=== PATIENT | male | born 1945 | race Caucasian/White ===

== ENCOUNTER 2016-09-06 07:30 | Observation (INO) | payer MEDICARE ==
[~2016-09-06] VITALS: Ht 180.3 cm; Wt 94.5 kg
--- NOTE | ~2016-09-06 | HP ---
PATIENT'S NAME: ELIGIO [facility] AGE: 70 Y [address] [place] [facility] [place] [address] LOCATION: [facility] [place] ADMIT DATE: 09/06/2016 History & Physical DISCHARGE DATE: FAMILY PHYSICIAN: PHYSICIAN, UNKNOWN ATTENDING PHYSICIAN: NAILA ABRAHAM DATE OF SERVICE: CHIEF COMPLAINT: Ostomy site prolapse. HISTORY OF PRESENT ILLNESS: The patient is a 70-year-old male who was seen at an outside hospital and found to be in acute urinary retention. He was transferred to the [place] for urological care and was noted to have a prolapsed at his ostomy site. The patient states the prolapse occurred about 3 weeks ago. He denies any pain at the ostomy site. He reports that he is still producing same quantity and frequency of stools. Denies any fevers. PAST MEDICAL HISTORY: 1. 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 2. Rectal adenocarcinoma, status post ostomy placement for bowel diversion. 3. Left renal cell carcinoma. 4. History of left-sided testicular carcinoma. 5. Atrial fibrillation. 6. Hypertension. 7. Cardiomegaly. PAST SURGICAL HISTORY: 1. Left orchiectomy. 2. Colostomy in May 2016. 3. Left renal biopsy. FAMILY HISTORY: Coronary artery disease. SOCIAL HISTORY: , retired. Social alcohol, history of smoking two packs per day x10 years. ALLERGIES: NO KNOWN DRUG ALLERGIES. MEDICATIONS: See hospital med rec. PATIENT'S NAME: ELIGIO, [facility] AGE: 70 Y [address] ROOM: [place] [address] LOCATION: [facility] [place] ADMIT DATE: 09/06/2016 History & Physical DISCHARGE DATE: FAMILY PHYSICIAN: PHYSICIAN, UNKNOWN ATTENDING PHYSICIAN: NAILA ABRAHAM REVIEW OF SYSTEMS: GENERAL: No fever or change in weight. HEENT: No acute vision changes. No recent sore throats or nasal congestion. PULMONARY: No chronic cough. CARDIAC: Atrial fib. ABDOMEN: Ostomy placement in May 2016 secondary to rectal carcinoma. Negative for nausea, vomiting, change in stool. GENITOURINARY: Positive for acute urinary retention. Positive for history of left testicular cancer and left renal cell carcinoma. MUSCULOSKELETAL: Negative for loss of range of motion. PHYSICAL EXAMINATION: VITAL SIGNS: BP 169/94, pulse 95, respirations 16, temperature 98.0, O2 saturation 95% on room air. CONSTITUTIONAL: No acute distress. Awake and oriented. HEENT: Mucous membranes moist. NECK: Supple. Full range of motion. CARDIAC: Good peripheral perfusion. RESPIRATORY: No audible wheezing. Respirations are nonlabored. No increased work of breathing. ABDOMEN: Left-sided ostomy site with protrusion of intestinal mucosa approximately 4 cm with mucosal ischemia and flossing apparent, along with fecal matter. GENITOURINARY: Catheter in place. IMPRESSION: 1. Ostomy prolapse. 2. Urinary retention. PLAN: A 70-year-old male with ostomy prolapse for approximately 3 weeks. Ostomy prolapse was reduced at bedside by Dr. Pierce Leo. The patient had moderate pain during procedure, but tolerated it well and recovered afterwards. Plan is to allow a few days for edema, swelling to subside. During that time, we hope to obtain surgical records from his ostomy placement to determine best surgical approach. This ostomy site will likely need to be surgically assessed and prolapse fixed, so that it does not occur again. The patient is wanting to transfer his surgical care to [place] at this time; however, we need surgical records to proceed. If prolapse reoccurs and it is not reducible, we will move surgical intervention to a more urgent status. At this time, no urgency and we can allow for the edema to subside. PATIENT'S NAME: ALFONSO [facility] AGE: 70 Y [address] ROOM: [place] [address] LOCATION: [facility] [place] ADMIT DATE: 09/06/2016 History & Physical DISCHARGE DATE: FAMILY PHYSICIAN: PHYSICIAN, UNKNOWN ATTENDING PHYSICIAN: NAILA ABRAHAM KENDALL SMITH MD RESIDENT FOR MD TIFFANY ANN/modl /[id number] D: [id number] HISTORY & PHYSICAL
--- NOTE | ~2016-09-06 | CON ---
PATIENT'S NAME: ALFONSO OLMOS [facility] AGE: 70 Y [address] ROOM: [id number] [place] [address] LOCATION: [facility] [place] ADMIT DATE: 09/06/2016 Consultation DISCHARGE DATE: FAMILY PHYSICIAN: PHYSICIAN, UNKNOWN ATTENDING PHYSICIAN: NAILA AMIN REFERRING PHYSICIAN: KWAME JIMENEZ MD Consult to Dr. Amin. REASON FOR CONSULTATION: Alfonso Olmos is a 70-year-old man with partially neglected, residual- recurrent, locally progressive adenocarcinoma of the rectum. HISTORY OF PRESENT ILLNESS: The history of present illness is obtained from Mr. Olmos whose history is of dubious veracity; from visiting with his physician's broker assistant, Marisa Ryder PA-C; from review of his [facility] record; his old [facility] and current [facility] record; and from review of the records obtained from the [facility] in [place], [place]. Mr. Olmos was doing reasonably well until 09/05/2016. He lived alone, [place], [place] the country. The patient was retired. The patient engaged in no formal or informal exercise or rehabilitation program. He denied any practical limits. He did all the housekeeping at his house. 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 His appetite has been good and he has had no change in his weight. He noted occasional "gas pains." They are relieved by Gas-X and emptying his ostomy. He had an indwelling Malave catheter, which had been present since May 2016. He tolerated the indwelling catheter well. The Malave catheter stopped draining on 09/05/2016. The patient was triaged by Dr. Amira Solomon to [facility] after he was refused admission at [facility] and declined a transfer to the [facility]. The patient was admitted to Dr. Amin's Hospitalist Service. Dr. Amin consulted Dr. Jimenez. Dr. Jimenez recommended the nursing staff place a Malave catheter and the nursing staff placed a 20-Amharic Malave catheter successfully. Dr. Jimenez plans to see the patient in follow up in early September 2016, at which time a cystoscopy will be considered. Dr. Jimenez planned to obtain the old records from the [facility] for review. The patient expressed a desire to receive further Oncology followup in [place] so we are consulted. The patient has a history of adenocarcinoma of the rectum. The patient PATIENT'S NAME: ALFONSO OLMOS [facility] AGE: 70 Y [address] ROOM: [id number] [place] [id number] LOCATION: [facility] [place] ADMIT DATE: 09/06/2016 Consultation DISCHARGE DATE: FAMILY PHYSICIAN: PHYSICIAN, UNKNOWN ATTENDING PHYSICIAN: NAILA AMIN A developed constipation and near obstipation in early 2015. A CAT scan of the abdomen and pelvis revealed a possible partial sigmoid volvulus with distended loops of sigmoid colon in the left upper quadrant of the abdomen in association with a rectal mass. The patient was admitted to Dr. Isabelle Menendez's Surgical Service at the [facility] on 04/22/2015. Dr. Menendez consulted Dr. Vinnie Rueda who performed a colonoscopy on 04/23/2015. Dr. Rueda advanced the colonoscope to 90 cm and performed hot biopsies of the rectal lesion. The bowel prep was poor. A CAT scan at the [facility] revealed a 2 cm mass in the lower pole of the left kidney suspicious for renal cell carcinoma. There was mild fatty infiltration of the liver and atherosclerotic changes in the blood vessels. There was severe osteoarthritis in the low back. There was a 4.2 cm cyst in the upper pole of the left kidney and moderate diffuse enhancement of a 2 cm nodule involving the lower pole of the left kidney. There was a 1 cm cyst just inferior to the uncinate process of the pancreas. The radiologist made the point the renal mass was amenable to CT-guided biopsy and radiofrequency ablations. A CEA was 2.83 ng/mL. The initial biopsy revealed markedly atypical villous colonic mucosa with ulceration highly suspicious for adenocarcinoma that was nondiagnostic. On 05/08/2015, Dr. Menendez biopsied the mass and once again the result was nondiagnostic for cancer. The biopsy revealed a tubulovillous adenoma with focal high-grade dysplasia. On 05/22/2015, Dr. Menendez performed a surgical biopsy, which was diagnostic for an invasive moderately differentiated adenocarcinoma. On the same day, Dr. Eris Garay performed a core needle biopsy of the left kidney mass, which revealed a Pedro grade 2 clear cell carcinoma of the kidney. The procedure note is unavailable, but perhaps the patient underwent radiofrequency ablation, which had been contemplated. On 05/02/2015, the patient saw Dr. Ilene Martin in consultation who did coordinate the follow up colonoscopy with polypectomy on 05/08/2015, which was nondiagnostic. Dr. Martin also setup the CT-guided left renal mass biopsy. On 05/10/2015, a PET/CT scan revealed a large hypermetabolic rectal mass consistent with malignancy with local invasion into the prostate. The radiologist could not exclude extension into the anus. There was no evidence of metastatic disease. The lower pole left kidney mass was not hypermetabolic, but was highly suspicious for a small renal cell carcinoma. Dr. Odalys Uriostegui saw the patient in Radiation Oncology consultation on 05/06/2015 and recommended conventional radiation therapy in conjunction with systemic chemotherapy. PATIENT'S NAME: ALFONSO OLMOS [facility] AGE: 70 Y [address] ROOM: [place] [address] LOCATION: [facility] [place] ADMIT DATE: 09/06/2016 Consultation DISCHARGE DATE: FAMILY PHYSICIAN: PHYSICIAN, UNKNOWN ATTENDING PHYSICIAN: NAILA AMIN Capecitabine was prescribed to the patient, but after exchanging information with some buddies, he decided not to take the systemic therapy, but did agree to take the radiation therapy. From 07/09/2015 through 08/16/2015 twenty-eight 180 cGy fractions for a total of 5040 cGy were administered to the rectal mass over 38 elapsed treatment days The patient saw Dr. Avtar Valadez at the [facility]. We do not have his note, but the note is referred to by Dr. Contreras. Dr. Contreras made the point that Dr. Valadez recommended a resection of the rectal mass with a pelvic exenteration with curative intent. The patient declined this recommendation. The patient reports no structured surveillance was recommended and apparently declined any recommendation for further systemic therapy when these recommendations were made at the [facility] in [place], [place]. The patient did well for a short-period of time, but eventually became miserable with urinary frequency, fecal and urinary incontinence. On 06/08/2016, the patient was admitted to the [facility]. The patient had 4 to 10 wbcs/HPF and many bacteria. The white count was 10,100, hemoglobin 10.7 g/dL, the MCV 93, and the platelets 307,000 with 86% neutrophils. The general chemical profile was remarkable for a slightly low albumin of 3.3 g/dL. The eGFR was 87. A CAT scan of the abdomen and pelvis was compared to an earlier scan performed on 10/01/2015. There was heterogeneous enhancement of the liver and the radiologist could not rule out the possibility of liver metastases. There was a small low-density area in the head of the pancreas measuring 1.5 cm. There was mild bilateral urinary obstruction and hydronephrosis. The ureters were dilated down to the pelvis, where there was a 9.4 cm lobular mass with significant central necrosis and the appearance of rectal carcinoma. This extended to the left lateral pelvic sidewall. This had increased by 4 cm from the size noted on the PET scan on 10/14/2015. There was also osteoarthritis in the spine. Dr. Jamal Contreras was consulted. On 06/10/2016, Dr. Contreras performed a laparoscopic loop sigmoid colectomy. Dr. Contreras made the point the mass was not amenable to stent placement. The colon was quite redundant, but it was possible to see where the colon disappeared behind the bladder into the pelvis, which was involved with a large mass effect. The patient had been seen in Urologic consultation prior to the surgery and a Malave catheter was placed. The patient also had a plantar ulcer of the left foot, which was evaluated and treated at that time. The Malave catheter was placed by Dr. Kenyon Hoskins after the nurses were unable to place a Malave catheter. 1000 mL of residual urine was drained. On 08/16/2016, a repeat PET/CT scan was performed and compared to an earlier scan done on October 14, 2015. There was a 12 cm rectal mass. The radiologist PATIENT'S NAME: ALFONSO OLMOS [facility] AGE: 70 Y [address] ROOM: [place] [address] LOCATION: [facility] [place] ADMIT DATE: 09/06/2016 Consultation DISCHARGE DATE: FAMILY PHYSICIAN: PHYSICIAN, UNKNOWN ATTENDING PHYSICIAN: NAILA AMIN could not detect whether the patient had necrosis or tumor. Along the very upper portion of the mass, there was a more intense area of activity that was 2.5 cm long with uptake of 8.4 SUV. The lower mass had less intense SUV. There was no evidence of liver metastasis. There was mild urinary dilatation of the left kidney. The ostomy in the left lower quadrant was noted. There was osteoarthritis in the spine. There was no evidence of a pancreatic mass. On 08/19/2016, the patient saw Dr. Bhargavi Medina in Medical Oncology consultation. Dr. Medina recommended initiation of FOLFOX chemotherapy after placement of an implanted vascular access device. The patient smoked 1 to 2 packs per day of cigarettes for 10 years, but has abstained for 40 years. The patient has chewed 1 can of tobacco a week for 40 years. He denies anyfamily history of colon cancer and any personal history of colonic polyposis.The patient denies any history of inflammatory bowel disease. ACTIVE MEDICAL PROBLEMS, CHRONIC, AND DIAGNOSED: 1. Generally asymptomatic chronic atrial fibrillation, which was found on a check at the [facility]. The patient is on chronic anticoagulation for this. He denies any history of attempted cardioversions. 2. Rectal carcinoma as noted. 3. Tobacco use: 1 to 2 packs per day for 10 years, abstained since 1969, and has chewed a pack of tobacco weekly for 40 years. 4. Essential arterial hypertension, noted 1991 on a checkup. This has not been labile or associated with end-organ damage. 5. Benign prostatic hypertrophy with bladder outlet obstruction and retention ? due to tumor invasion. 6. Overweight 29 kg/m2. 7. Nonalcoholic fatty liver disease noted on CAT scan 2015. 8. ? left renal cyst 4.2 cm in the upper pole of the left kidney. 9. Moderate atherosclerotic heart disease with moderate changes in the right coronary arteries and mild changes in the left coronary circulation noted on cardiac catheterization in April 2015. 10. 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 11. ? Alcoholism ?. This has been listed as a diagnosis. The patient states he drinks 3 beers a day and has not been an alcoholic. 12. 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 13. Postherpetic neuralgia in the right lower thoracic dermatome since 2011. This barely troubles him at this point. 14. Atherosclerotic peripheral vascular disease noted on CAT scan. The PATIENT'S NAME: ALFONSO OLMOS [facility] AGE: 70 Y [address] ROOM: [place] [address] LOCATION: [facility] [place] ADMIT DATE: 09/06/2016 Consultation DISCHARGE DATE: FAMILY PHYSICIAN: PHYSICIAN, UNKNOWN ATTENDING PHYSICIAN: NAILA AMIN A patient also had an ischemic left plantar foot ulcer treated in May 2016. 15. Decreased auditory acuity, mild. 16. Septal motion consistent with conduction abnormality and an LVEF of 45% to 50% noted on echocardiogram in 2015. ACUTE MEDICAL ILLNESSES (RESOLVED), PAST SURGERIES, INJURIES: 1. 1951-appendectomy. 2. 2014-surgical excision of the nonmelanomatous skin cancer on the left alevism. 3. 2015-coronary artery catheterization. 4. 2015 (06/27)-left inguinal orchidectomy for chronic epididymoorchitis. 5. 2016 (06/09)-laparoscopic loop sigmoid colostomy. MEDICATIONS UPON ADMISSION: 1. Ibuprofen 400 mg p.o. b.i.d. 2. Losartan potassium 50 mg p.o. q.24 h. 3. Metoprolol tartrate 25 mg p.o. b.i.d. 4. Metoprolol tartrate 100 mg p.o. b.i.d. 5. Warfarin sodium. ADVERSE REACTIONS TO MEDICATIONS, TRANSFUSIONS, ALLERGIES: 1. No known allergies. 2. No history of blood transfusions. TOBACCO: 1. One to two pack per day of cigarettes for 10 years abstained x 40 years. 2. The patient has chewed 1 can of chewing tobacco a week for 40 years. ALCOHOL: Three beers a day, occasional wine. CAFFEINE: One cup of green tea per day. IMMUNIZATIONS: Negative flu, negative Pneumovax, negative tetanus, and negative varicella zoster virus. FAMILY HISTORY: The patient's brother had prostate cancer and was cured when he was over 50. A maternal grandmother had a cancer when she was older than 50, type unknown. A maternal uncle with prostate cancer, but not from it. A paternal uncle was cured of prostate cancer when he was greater than 50 years old. SOCIAL HISTORY: PATIENT'S NAME: ALFONSO OLMOS [facility] AGE: 70 Y [address] ROOM: [id number] [place], [place] [address] LOCATION: [facility] [place] ADMIT DATE: 09/06/2016 Consultation DISCHARGE DATE: FAMILY PHYSICIAN: PHYSICIAN, UNKNOWN ATTENDING PHYSICIAN: NAILA AMIN The patient was born and raised a [facility]. He attended [employer] in [place], [place] and also attended [employer]. He did not graduate. He served our country in the [employer] from [id number]. 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 The patient was , but after 2 to 3 years. He has a son who lives in [place], [place]. The patient was [facility] [employer] [employer] for poor attendance, but they still solicit donations from him. [place] alone [place] the [place], [place] and is retired. REVIEW OF SYMPTOMS: 1. Chronic lower extremity edema. 2. Occasional palpitations associated with dizziness. 3. Longstanding tinnitus. PHYSICAL EXAMINATION: VITAL SIGNS: Pulse 104 and regular, blood pressure 205/95, respiratory rate 14, temperature 97.9, height 71 inches, weight 94.5 kg (280 pounds), BMI 29 kg/m2. GENERAL: Well-developed, overweight, 70-year-old, male, in no acute distress. HEENT: Acne rosacea, extensive facial telangiectasias, the teeth are in poor repair. LYMPH NODES: None palpable. NECK: Without JVD or carotid bruits. SKIN: Multiple nevi, castaneda angiomas. CHEST: Clear. CV: Irregularly irregular rhythm with no murmurs, bruits, or adventitious sounds. BREASTS: Gynecomastia. ABDOMEN: Healed vertical scar in the right lower quadrant, prolapsed ostomy in place in the left lower quadrant. No masses, tenderness, or organomegaly. Bowel sounds normal. GENITALIA AND RECTAL: A Malave catheter is in place. The patient is uncircumcised, status post left orchidectomy. CHEST WALL: Right subclavian implanted vascular access device present. EXTREMITIES: Pretibial hemosiderosis. Absent pulses in lower extremities and 2+ in the upper extremities. There is a healed left plantar ulcer between the left 1st and 2nd metatarsal. NEURO: Cranial nerves 2 through 12 intact. Strength 5/5 throughout. Deep tendon reflexes not tested. The patient performs poorly at serial 7s and at interpreting proverbs. He was able to remember 2 of 3 objects. He is oriented to person, place, and time, and is generally appropriate. IMPRESSION: A 70-year-old man with: 1. Initial stage IIC (T4b, Nx, M0) moderately differentiated adenocarcinoma PATIENT'S NAME: ALFONSO OLMOS [facility] AGE: 70 Y [address] ROOM: [place] [id number] LOCATION: [facility] [place] ADMIT DATE: 09/06/2016 Consultation DISCHARGE DATE: FAMILY PHYSICIAN: PHYSICIAN, UNKNOWN ATTENDING PHYSICIAN: NAILA AMIN of the rectum, partially neglected, now with residual or recurrent disease, locally progressive. 2. 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 3. Based on the PET/CT scan, it appears the patient would still be a candidate for surgical therapy with a pelvic exenteration with curative intent, but the patient has declined this approach in the past. 4. Continued best supportive care or systemic therapy needs to be contemplated here. PLAN/DIAGNOSTIC: If the patient selects systemic therapy, we will test the tissue for the DEREK, KRAS, and BRAF mutations as well as microsatellite instability. TREATMENT: Depends on what the patient decides after a long discussion of the alternatives. PATIENT EDUCATION: Made the point we wanted to review his records and then sit down and take some time to review the alternatives. MD REDD CULLEN/steven /[id number] CC: MD Amira Cavazos MD James W Hervert, MD Garrett Pohlman, MD David M Gossat, MD Odalys Davieserman, MD, PhD MD Bhargavi Youngblood MD d: 09/08/16 0233 t: 09/08/16 0952, CONSULTATION REPORT
--- NOTE | ~2016-09-06 | CON ---
PATIENT'S NAME: ALFONSO DEL VALLE [facility] AGE: 70 Y [address] ROOM: [id number] [place], [place] [address] LOCATION: [facility] ADMIT DATE: 09/06/2016 Consultation DISCHARGE DATE: FAMILY PHYSICIAN: PHYSICIAN, UNKNOWN ATTENDING PHYSICIAN: MARCOS MOYER DATE OF CONSULTATION: 09/06/2016 REFERRING PHYSICIAN: KWAME SHERIFF MD CHIEF COMPLAINT: Urinary retention. HISTORY OF PRESENT ILLNESS: The patient is a pleasant 70-year-old male who was transferred in from [facility] in acute urinary retention. He had presented to the emergency room there complaining of pelvic pain and Malave catheter not draining. They had removed his Malave catheter, which was not draining at the outside emergency room, and were having difficulty in getting another catheter put back in. His Malave catheter had been placed apparently back in May 2016 by a urologist in [place], and the patient states that nobody told him to follow up, and he has had that same catheter since May. The outside hospital tried transferring him to [place] given his history with them placing the Malave catheter, and the urologist on-call there refused a referral, and said that they could just go ahead and transfer him to the [facility]. I was then contacted by the emergency room at [facility], and the patient was wanting to transfer all of his care including surgical, urological, and oncology care here to [place], and so he was transferred here to [facility] for his urinary retention. 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 Espinal, and he is now set for chemotherapy. He has undergone a diverting left-sided ostomy for bowel diversion. The patient also reportedly has a history of left testicular cancer, for which he underwent orchiectomy on June 26, 2015 as well as a positive renal biopsy for clear-cell carcinoma, grade 2 of the left kidney. We are still awaiting records from [facility] where he apparently had undergone his orchiectomy and renal biopsy. The patient has no further questions or concerns at this time. PAST MEDICAL HISTORY: 1. 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 2. Rectal adenocarcinoma. 3. Left renal cell carcinoma. PATIENT'S NAME: ELIGIO [facility] AGE: 70 Y [address] ROOM: [place] [address] LOCATION: [facility] ADMIT DATE: 09/06/2016 Consultation DISCHARGE DATE: FAMILY PHYSICIAN: PHYSICIAN, UNKNOWN ATTENDING PHYSICIAN: MARCOS MOYER 4. History of testicular carcinoma. 5. Atrial fibrillation. 6. Hypertension. 7. Cardiomegaly. PAST SURGICAL HISTORY: 1. Left orchiectomy. 2. Loop colostomy by Dr. Aguilar on June 11, 2013. FAMILY HISTORY: Significant for family history of coronary artery disease. No reported family history of genitourinary abnormalities or malignancy. SOCIAL HISTORY: The patient is . 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 He does drink some alcohol. He does have a history of smoking 2 packs per day for 10 years in the past. He does use some chewing tobacco. ALLERGIES: NO KNOWN DRUG ALLERGIES. MEDICATIONS: See hospitalization medication reconciliation. REVIEW OF SYSTEMS: A full 10+ point review of systems was performed with pertinent positive and negative findings included in the history of present illness. All other systems were reviewed and are otherwise negative. PHYSICAL EXAMINATION: VITAL SIGNS. Temperature 97.7 degrees Fahrenheit, pulse is 89, blood pressure 142/82, respiratory rate 16, oxygen saturation 95% on room air. CONSTITUTIONAL: No acute distress. The patient is awake and oriented. HEENT: Extraocular muscles intact. Mucous membranes moist. No drainage per ears and nose. CARDIAC: Good peripheral perfusion. RESPIRATORY: No audible wheezing and respirations unlabored. ABDOMEN: Soft, nontender, nondistended. GENITOURINARY: Normal circumcised phallus with no penile lesions noted. His meatus is orthotopic with no penile drainage. His left testicle is surgically absent, and his right testicle is palpably normal with no testicular masses. MUSCULOSKELETAL: He moves all extremities. NEUROLOGIC: No focal deficits noted. PSYCHIATRIC: Normal affect and answers questions appropriately. HEMATOLOGIC: No bruising or active sites of bleeding. PATIENT'S NAME: ALFONSO DEL VALLE [facility] AGE: 70 Y [address] ROOM: [place] [address] LOCATION: [facility] ADMIT DATE: 09/06/2016 Consultation DISCHARGE DATE: FAMILY PHYSICIAN: PHYSICIAN, UNKNOWN ATTENDING PHYSICIAN: MARCOS MOYER IMPRESSION: 1. BPH with acute urinary retention. 2. History of rectal adenocarcinoma. PLAN: Upon arrival to the hospital, I had nursing staff successfully place a 20- Wolof coude Malave catheter, which is now draining clear yellow urine output. For his indwelling Malave catheter, we will plan to keep this indwelling and see the patient back for followup on October 01, 2016 or on October 02, 2016 for Malave catheter exchange, and at that time, we will consider further evaluation with cystoscopy to get a better sense for the degree of bladder outlet obstruction, but also further evaluate the state of his bladder. If he is not already taking at home, we may consider getting him started on some tamsulosin 0.4 mg daily. We will also work on obtaining the records from [facility] to review. His pathology history including his history of left orchiectomy but also renal mass biopsy. The patient is wanting to transfer his oncologic care here to [place], and we will have the Hospitalist Team touch base with Oncology tomorrow to get him set up for likely initiation of chemotherapy. The patient was also noted on exam today to have a significant prolapse of his left-sided ostomy, and we will also have the Hospitalist Team touch base with General Surgery to take a look at this, but also to establish care for any potential surgery needed after his chemotherapy and radiation. The patient's questions and concerns were addressed, and he has no further at this time. KWAME SHERIFF MD GP/modl /[id number] d: 09/06/16 2303 t: 09/16/16 0823, CONSULTATION REPORT
--- NOTE | ~2016-09-06 | DS ---
PATIENT'S NAME: ALFONSO DEL VALLE [facility] AGE: 70 Y [address] ROOM: [id number] [place], [place] [address] LOCATION: [facility] ADMIT DATE: 09/06/2016 Discharge Summary DISCHARGE DATE: 09/09/2016 FAMILY PHYSICIAN: Amira Solomon ATTENDING PHYSICIAN: Davide Amin FINAL DIAGNOSES: 1. Urinary retention. 2. Accelerated hypertension. 3. Chronic atrial fibrillation. 4. Rectal cancer. 5. Prolapsed ostomy. CONSULTANTS ON THE CASE: 1. Dr. Paxton Jimenez. 2. Dr. Mckay Kay. 3. Dr. Pierce Leo. HOSPITAL COURSE: Please see details in the admission H and P by Dr. Amin. Briefly, the patient was admitted in transfer from [facility] for urinary retention. Please refer to Dr. Jimenez's consulted note for further details. The patient was able to have urinary catheter placed. The patient was noted to have accelerated hypertension and was started on labetalol. Morphine was utilized for pain control. After evaluation by Dr. Jimenez, General Surgery and Heme-Onc consults were placed for his complicated medical history. Surgery was able to evaluate the patient on 09/07. The patient was found to have a prolapsed ostomy and it was reduced at bedside by Dr. Leo. The patient had moderate discomfort with the reduction, but recovered adequately. Surgery made mention that they would have to do surgical intervention if the ostomy further prolapsed or if the patient had further discomfort. We did have difficulty with blood pressure control. The patient's home medications were resumed. This did not adequately drop his blood pressures, and we ended up increasing his beta-zita and his ARB as well as adding Norvasc prior to his dismissal. Dr. Kay consulted on the patient on 09/08/2016. Treatment goals and recommendations were explained in great detail. Please refer to his consultation. On the , Surgery re-visited the patient and he was doing well. His prolapsed ostomy remained reduced and he had no further complications. It was putting out brown stool as per his usual. They felt that there would be no surgical intervention at this time, and it was deemed that the patient could resume his Coumadin dosing per his home schedule. The patient was educated on irrigation of the Malave catheter to further prevent any urinary retention symptoms. The patient felt stable for discharge and all parties agreed, and the patient was discharged in stable condition on 09/09/2016. PATIENT'S NAME: ALFONSO DEL VALLE [facility] AGE: 70 Y [address] ROOM: [id number] [place], [place] [address] LOCATION: [facility] ADMIT DATE: 09/06/2016 Discharge Summary DISCHARGE DATE: 09/09/2016 FAMILY PHYSICIAN: Amira Solomon ATTENDING PHYSICIAN: Davide Amin DIAGNOSTICS: Laboratory data on admission: Sodium was 143, potassium 4.0 chloride 110, bicarb 26, glucose 129, BUN 13, creatinine 1.0. These values remained stable throughout his stay. On admission, white blood cell count was 10.3, hemoglobin 12.1, hematocrit 36.4, platelets 274. These values also remained stable throughout his stay. INR on September 07 was 2.15. It trended down to 1.32 on the day of discharge. DISCHARGE INSTRUCTIONS: The patient is discharged home. Diet: Regular. Activity: As tolerated. Followup: With Dr. Milton in 5-[address] Jimenez on October 01 or for Malave exchange and cystoscopy. I did request that the patient see Dr. Amira Solomon in [place] in 2-3 days and have a PT/INR drawn at that time. The patient was educated on Malave irrigation to prevent retention. DISCHARGE MEDICATIONS: 1. Cozaar 100 mg daily. 2. Metoprolol 100 mg 3 times daily. 3. Neosporin topically 3 times daily. 4. Flomax 0.4 mg daily. 5. Coumadin 5 mg alternating with 7.5 mg every other day. 6. Norvasc 10 mg daily. We do appreciate participating in this patient's care. Thank you very much for the ability to serve him while hospitalized at [facility]. Time spent coordinating details of discharge was 35 minutes of which was spent coordinating with consulting physicians and Care Management, completion of medication reconciliation, and education to the patient and family on the above-mentioned diagnoses. MIRYAM LANCE FOR ERICA MCKINNEY MD LITO/modl /[id number] d: 09/10/16 0320 t: 09/29/16 1521, DISCHARGE SUMMARY
--- NOTE | ~2016-09-06 | HP ---
PATIENT'S NAME: ELIGIO [facility] AGE: 70 Y [address] ROOM: [id number] [place], [place] [address] [place] [facility] ADMIT DATE: 09/06/2016 History & Physical DISCHARGE DATE: FAMILY PHYSICIAN: PHYSICIAN, UNKNOWN ATTENDING PHYSICIAN: MARCOS MOYER DATE OF SERVICE: CHIEF COMPLAINT: Pain in the pelvic region. HISTORY OF PRESENT ILLNESS: A 70-year-old gentleman with the past medical history of rectal cancer status post colectomy and colostomy done in May, complicated by urinary retention, have a chronic Malave catheter, presented to the [facility] with the pain in the pelvic region. Starting last night when the Malave's catheter stopped draining. Multiple attempts of putting the Malave catheter was done at [facility] without any success, then Dr. Jimenez from Urology was contacted here in [place]. The patient was transferred here to replace the Malave catheter. On my encounter, the Malave catheter had been replaced by the nursing staff and it is draining well. Dr. Jimenez have been informed of this patient. He does not complain of much pain any more. He states that he is much comfortable now. He denied any fevers, chills, or abdominal pain. Any headache, any chest pain, or any shortness of breath. REVIEW OF SYSTEMS: All other systems reviewed and were negative except for what is mentioned in the HPI. PAST MEDICAL HISTORY: 1. Chronic urinary retention with indwelling catheter. 2. Rectal carcinoma status post surgery, status post left-sided colostomy done. Received radiation. 3. Atrial fibrillation. MEDICATIONS: Please see MAR. FAMILY HISTORY: Positive for coronary artery disease. SOCIAL HISTORY: Quit smoking long time ago. Lives in [place]. PHYSICAL EXAMINATION: PATIENT'S NAME: ELIGIO, [facility] AGE: 70 Y [address] ROOM: [facility] [place], [place] [address] LOCATION: [facility] ADMIT DATE: 09/06/2016 History & Physical DISCHARGE DATE: FAMILY PHYSICIAN: PHYSICIAN, UNKNOWN ATTENDING PHYSICIAN: MARCOS MOYER VITAL SIGNS: Blood pressure 150/60, 72, afebrile, and 16. GENERAL: In no acute distress. Alert and oriented x3. HEENT: Head; atraumatic and normocephalic. Eyes; nonicteric. No pallor. Oropharynx; moist mucous membranes. CARDIOVASCULAR: Variable S1, irregular S2. No murmurs, gallops, or rubs. LUNGS: Clear to auscultation bilaterally. ABDOMEN: Soft, nontender, and nondistended. Bowel sounds are present. Left- sided colostomy bag in place. EXTREMITIES: No clubbing, cyanosis, or edema. PSYCHIATRIC: Normal affect, mood, and speech. ASSESSMENT AND PLAN: 1. Urinary retention status post replacement of the Malave's catheter. 2. Rectal carcinoma. 3. Atrial fibrillation. 4. Long-term anticoagulation. The patient's Malave has been replaced at the direction of Dr. Jimenez. He is feeling much better. Patient wants to transfer care here. Have seen Dr. Martin in the past and want to see Dr. Melton or now. Gen consult for colostmy check up. MD SARAH CAMPO/steven /[id number] D: T: 911 HISTORY & PHYSICAL
--- NOTE | 2016-09-06 12:55 | NUR ---
PATIENT ADMITTED FROM [facility] FOR URINARY RETENTION. PER REPORTS PATIENT PRESENTED TO ER AFTER DE OLIVEIRA NOT DRAINING, AND ABDOMINAL PAIN. [facility] ATTEMPTED TO CHANGE DE OLIVEIRA UNABLE TO REPLACE. PATIENT TRANSFERRED HERE FOR EVAL. HX OF AFIB, HTN, RECTAL CA WITH COLOSTOMY. PER PATIENT HE HAS A TUMOR BY HIS PROSTATE. HISTORY OF SMOKING "YEARS AGO" HIGH RISK CIWA SCORE. PATIENT HAS COLOSTOMY, STOMA PROLAPSED SLIGHTLY DARKER IN COLOR PER PATIENT THAT IS HOW IT LOOKS AND DEYVI LACKEY TOLD HIM THAT WAS OK. PATIENT ALERT ORIENTED X3. HTN 220'S/100'S. MD AWARE. 20 FR COUDE CATHETER PASSED WITH 2 ATTEMPTS AT BEDSIDE, 1300ML YELLOW URINE WITH SEDIMENT NOTED IN TUBING. CURRENTLY FLUSHING WELL FOLLOW UP: MONITOR DE OLIVEIRA FOR PATENCY AND MONITOR BLOOD PRESSURES.
[2016-09-06 15:24] LABS: BASOPHIL % 0.4 %; EOSINOPHIL # 0.2 K/uL (0.0-0.5); EOSINOPHIL % 2.1 %; HEMATOCRIT 36.4 % (37.0-53.0); HEMOGLOBIN 12.1 g/dL (11.0-16.0); IMMATURE GRANULOCYTE % 0.4 %; LYMPHOCYTE # 0.7 K/uL (0.8-4.0); LYMPHOCYTE % 6.7 %; MCH 31.5 pg (27.0-34.0); MCHC 33.2 gm/dL (32.0-36.5); MCV 94.8 fl (83.0-98.0); MONOCYTE # 0.7 K/uL (0.0-1.0); MONOCYTE % 7.2 %; MPV 9.1 fl (9.4-12.4); NEUTROPHIL # (ANC) 8.6 K/uL (1.4-9.0); NEUTROPHIL % 83.2 %; NRBC % 0 /100WBC (0-0.00); PLATELET COUNT 274 K/uL (150-450); RBC 3.84 M/uL (3.50-5.50); RDW-CV 15.5 % (11.9-14.6); WBC 10.3 K/uL (4.0-11.0)
[2016-09-06 15:39] LABS: BLOOD UREA NITROGEN 13 mg/dL (6-24); CALCIUM 8.3 mg/dL (8.5-10.5); CHLORIDE 110 mMol/L (96-110); CO2 26 mMol/L (22-32); ESTIMATED GFR (MDRD EQUATION) > 60; SODIUM 143 mMol/L (135-145)
--- NOTE | 2016-09-06 19:09 | NUR ---
PATIENT ALERT AND ORIENTED. HTN AT TIMES. B/PS 225/102, 189/98, LABETOLOL 10MG IVP GIVEN AT 1320. NEXT BP 142/82. 20FR COUDE DE OLIVEIRA PLACED WITHOUT DIFFICULTY 1750 OF LIGHT YELLOW URINE OUT, SOME SEDIMENT NOTED TO URINE. PATIENT UP TOLERATED. IV SL. DENIES NEEDS AT THIS TIME. NO OTHER PRNS GIVEN.
--- NOTE | 2016-09-07 04:26 | NUR ---
Significant Event:At start of shift patient stated his echevarria was not draining. It was draining some but was flushed with 20ml of NS, with a return of 900ml of urine. Have flushed it a couple of times during the shift to make sure it doesn't become clogged with some sediment, no blood. He has rested most of the shift with no further complaints. Has a colostomy bag that is passing gas and had 100ml out of liquid stool. Follow up: To have surgery consult and oncology consult in am.
[2016-09-07 06:00] LABS: BASOPHIL % 0.5 %; EOSINOPHIL # 0.3 K/uL (0.0-0.5); EOSINOPHIL % 3.7 %; HEMATOCRIT 34.7 % (37.0-53.0); HEMOGLOBIN 11.3 g/dL (11.0-16.0); IMMATURE GRANULOCYTE % 0.5 %; LYMPHOCYTE # 0.6 K/uL (0.8-4.0); LYMPHOCYTE % 7.3 %; MCH 31.1 pg (27.0-34.0); MCHC 32.6 gm/dL (32.0-36.5); MCV 95.6 fl (83.0-98.0); MONOCYTE # 0.6 K/uL (0.0-1.0); MONOCYTE % 7.2 %; NEUTROPHIL # (ANC) 6.8 K/uL (1.4-9.0); NEUTROPHIL % 80.8 %; NRBC % 0 /100WBC (0-0.00); PLATELET COUNT 260 K/uL (150-450); RBC 3.63 M/uL (3.50-5.50); RDW-CV 15.6 % (11.9-14.6); WBC 8.4 K/uL (4.0-11.0)
[2016-09-07 06:15] LABS: ANION GAP 9.7 (10.0-19.0); BLOOD UREA NITROGEN 16 mg/dL (6-24); CALCIUM 8.3 mg/dL (8.5-10.5); CHLORIDE 110 mMol/L (96-110); CO2 26 mMol/L (22-32); CREATININE 0.9 mg/dL (0.6-1.3); ESTIMATED GFR (MDRD EQUATION) > 60; POTASSIUM 3.7 mMol/L (3.7-5.1); SODIUM 142 mMol/L (135-145)
[2016-09-07] MEDS ORDERED: COUMADIN ** IA5 MG PO ×2 (11:26→11:27)
[2016-09-07] MEDS ORDERED: COZAAR50 MG PO (11:28)
[2016-09-07] MEDS ORDERED: LOPRESSOR100 MG PO (11:29)
[2016-09-07] MEDS ORDERED: ADVIL200 MG PO (11:30)
[2016-09-07] MEDS ORDERED: LOPRESSOR50 MG PO (11:30)
--- NOTE | 2016-09-07 11:30 | NUR ---
Introduced self/role to patient. He lives alone in [place], [place]. His doctor just retired and he has not picked a new one. We talked about the importance of a family doctor and encouraged him to look into other doctors in the clinic he goes to. He stated his brother lives 1 1/2 miles away. He denied any barriers to going home or at home. Add my name to his marker board, will continue to follow.
[2016-09-07 13:50] LABS: INR - (THERAPEUTIC) 2.15 (0.92-1.07); PROTIME 22.7 SECONDS (9.8-11.4)
--- NOTE | 2016-09-07 17:02 | NUR ---
Significant Event:Is A/O.Had prolapsed colostomy stoma which was able to push back.Malave dring yellow urine with some sediment.Had to piston irrigate x1.No blood noted.No c/o pain.Up with one assist.Is hypertensive. Follow up:
--- NOTE | 2016-09-08 02:29 | NUR ---
Significant Event: pt alert and Oriented x3. cooperative with cares. colostomy with bloody outpy. echevarria inact draining with no difficulties, sediment noted. VSS. RA. IV right forarm SL. denies any pain or SOB. slept on and off through out the shift. Follow up:
[2016-09-08 04:37] LABS: PROTIME 17.4 SECONDS (9.8-11.4)
[2016-09-08 04:39] LABS: INR - (THERAPEUTIC) 1.65 (0.92-1.07)
[2016-09-08 04:47] LABS: ALBUMIN 2.7 gm/dL (3.5-5.0); TOTAL BILIRUBIN 0.8 mg/dL (0.0-1.5); TOTAL PROTEIN 6.3 g/dL (6.0-8.4)
--- NOTE | 2016-09-08 16:45 | NUR ---
Significant Event:Is A/O.Colostomy stoma still in since Dr Leo pushed the prolapse back in yesterday.Echevarria rafa yellow urine with lots of sediment.Did have to piston irrigate the echevarria once.Ostomy rafa some brown drng with some formed stool & some flatus.Has been amb with help.Bottom "is sore some he said from sitting in chair yesterday".Encouraged him to turn & not have pressure on it,but he doesnt really like to do that. Follow up:
--- NOTE | 2016-09-09 02:21 | NUR ---
Significant Event: Pt alert and Oriented x3. Colostomy intact with light brown output, 200 ML. Malave intact with sedement noted. irrigated x2 with results.encourage to wlk in halls but pt refused, pt also refused cahnging positions. 1 assist. IV SL.hypertensive at shift change, PRN labetalol given. RA. Denies any pain or SOB. regular diet. refused leg pumps. Follow up:encourage ambulating.
[2016-09-09 05:42] LABS: INR - (THERAPEUTIC) 1.32 (0.92-1.07); PROTIME 13.9 SECONDS (9.8-11.4)
--- NOTE | 2016-09-09 09:25 | NUR ---
Spoke with nursing and Marisa Marcelino. Patient should be able to go home and there are no identified needs. May be discharge tomorrow.
[2016-09-09] MEDS ORDERED: COZAAR100 MG PO (14:09)
[2016-09-09] MEDS ORDERED: NEOSPORIN1 PKT TOP (14:10)
[2016-09-09] MEDS ORDERED: FLOMAX0.4 MG PO (14:10)
[2016-09-09] MEDS ORDERED: NORVASC10 MG PO (14:11)
--- NOTE | 2016-09-09 17:30 | NUR ---
DISCHARGE: D: ORDERS RECEIVED FOR THE PATIENT TO BE DISCHARGED TO HOME WITH HIS DE OLIVEIRA CATHETER TODAY. I: DISMISSAL INSTRUCTIONS WERE PREPARED AND REVIEWED WITH THE PATIENT AT THE BEDSIDE. THE FOLLOWING INFORMATION WAS DISCUSSED INCLUDING ISAEL TEACHING SHEETS PROVIDED: DISCHARGE INSTRUCTION-CARING FOR YOUR INDWELLING DE OLIVEIRA CATHETER, EMPTYING AND CLEANING YOUR URINARY CATHETER BAG, CARING FOR YOUR LEG BAG, TAKING BLOOD PRESSURE MEDICINE, CONTROLLING HIGH BLOOD PRESSURE, NEOSPRORIN, FLOMAX, TALKING NORVASC, AND NORVASC. REVIEWED FOLLOW UP APPOINTMENT, NEW PRESCRIPTIONS INCLUDING SIDE EFFECTS AND THE IMPORTANCE OF FILLING HIS NEW PRESCRIPTIONS SOON POSSIBLE. R: THE PATIENT VERBALIZED UNDERSTANDING OF THE DISMISSAL EDUCATION AT THE TIME OF TEACHING WITH NO FURTHER QUESTIONS.
--- NOTE | 2016-09-09 20:19 | NUR ---
Significant Event: PT WAS DISMISSED TO HOME. HE HAD A FRIEND PICK HIM UP. CATHETER HAD LITTLE OUTPUT THIS AM. CATHETER WAS IRRIGATED AT 1030. PT PREFERED THAT THE NURSE DO THE IRRIGATION BUT HE WAS ABLE TO TELL THE NURSE WHAT NEEDED TO BE DONE. MUCOUS SHREDS WERE IRRIGATED OUT OF CATH WITH 10ML OF FLUID INSERTED. NO FURTHER PROBLEMS WITH CATHETER DRAINAGE. LEG WAS PLACED ON CATHETER PRIOR TO DISMISSAL. PT WAS GIVEN IRRIGATION KIT AND DE OLIVEIRA BAG FOR HOME. PT HAS HAD AN INDWELLING CATHETER AT HOME SINCE MAY. STOMA ON COLOSTOMY WAS NOT PROLAPSED AND HAD 250ML OF BROWN STOOL OUT.
== END 2016-09-09 18:31 | disposition disaster alternative care site (69) ==
LOC: GMSU 08:22
PROVIDERS: Internal Medicine Hematology & Oncology; Physician Assistant; Urology; ADMIT Internal Medicine
DX: R33.9 Retention of urine, unspecified (principal); I10 Essential (primary) hypertension; I48.2 Chronic atrial fibrillation; F17.220 Nicotine dependence, chewing tobacco, uncomplicated; C20 Malignant neoplasm of rectum; C64.2 Malignant neoplasm of left kidney, except renal pelvis; N40.1 Benign prostatic hyperplasia with lower urinary tract symptoms; Z87.891 Personal history of nicotine dependence; Z85.47 Personal history of malignant neoplasm of testis; Z79.01 Long term (current) use of anticoagulants; K94.09 Other complications of colostomy; I25.10 Atherosclerotic heart disease of native coronary artery without angina pectoris; Z90.49 Acquired absence of other specified parts of digestive tract
CPT/HCPCS: A9270; G0378